=== PATIENT | male | born 1985 | race Caucasian/White ===

== ENCOUNTER 2017-01-11 17:25 | Inpatient (IN) | payer BC, OTHER ==
[~2017-01-11] VITALS: Ht 180.3 cm; Wt 77.1 kg
--- NOTE | ~2017-01-11 | S ---
[facility] [place] [address] SURGICAL PATH RPT PROCEDURE Name: ROSHAN ESCOBEDO Room #: 417-I [facility] IN ..#: [id number] Admission: 01/11/17 Date of : 83 Discharge: 01/12/17 Report #: [id number] Path Case #: [id number] PATHOLOGY REPORT COLLECTION DATE: 01/12/2017 RECEIVED DATE: 01/12/2017 SUBMITTING PHYS: Dr. Alvino Schaefer OTHER PHYS: SPECIMEN(S) RECEIVED: A.Nevus and skin from abdomen B.Appendix * * * * * * * * * * * * FINAL DIAGNOSIS: A. Nevus, nevus and skin from abdomen, excision: - Compound nevus with congenital features. - Completely excised. B. Appendix, appendectomy: - Marked acute appendicitis along with mild serositis. (IUV:mml; d/t: 01/15/2017) PATHOLOGIST: Julieta Torrez M.D. REPORT ELECTRONICALLY SIGNED BY: Julieta Torrez M.D. DATE/TIME: 01/15/2017 17:37 * * * * * * * * * * * * GROSS PATHOLOGY: A. Received in formalin labeled "Roshan Escobedo, nevus and skin from abdomen," is a 2.0 x 0.8 x 1.1 cm ellipse of skin displaying a well-circumscribed, raised, granular and light brown lesion which measures 1.0 x 0.8 x 0.4 cm. The margins are inked black. The specimen is sectioned into six pieces and entirely submitted in cassettes A1 and A2, with the tips placed in cassette A2. B. Received in formalin labeled "Roshan Escobedo, shena," is an appendix measuring 8.6 cm in length and up to 1.1 cm in diameter with a small amount of attached mesoappendix. The serosal surface is pale calderon to pink-calderon in appearance with moderate vasculature. Sectioning reveals a patent to dilated lumen filled with white-calderon mucoid material. [employer] sections are submitted in cassette A1. (CAA; 01/14/2017) CLINICAL HISTORY: Acute appendicitis, abdominal skin nevus [address] [address] SURGICAL PATH RPT PROCEDURE Name: ROSHAN ESCOBEDO Room #: 417-I [facility] IN .R.#: [id number] Admission: 01/11/17 Date of : 83 Discharge: 01/12/17 Report #: [id number] Path Case #: [id number] INITIAL CPT CODE(S): A; 29360 B; 62975 Professional services performed by [facility] [address], [place] [address] Technical services performed by [facility] at [address] [place] [address], [facility] [address] [address]. [facility] [address] [address] PHONE: [phone] DIRECTOR: Andrew Balderas M.D. * * * END OF REPORT * * *
--- NOTE | ~2017-01-11 | H ---
[facility] [place] [address] HISTORY AND PHYSICAL Name: ALAN DILL Raman Room #: 417-I ADM IN [facility].#: [id number] Admission: 01/11/17 Attend Phys: Alvino Schaefer MD, F Discharge: Date of : 83 Report #: [id number] THIS REPORT FOR: //name// CC: FAUSTINO physician/PCP Alvino Schaefer DATE OF SERVICE: 01/12/2017 This 31-year-old male presented to the Emergency Room last night at approximately 2000 with abdominal pain. HISTORY OF PRESENT ILLNESS: The patient's abdominal pain began in the a.m. on and progressively worsened during the day. He had some anorexia associated with nausea and vomiting. Pain seemed to localize to his right lower quadrant. A CT scan was consistent with early appendicitis. He has had no previous disease or illnesses in regard to his gastrointestinal tract. He is somewhat anorexic today. PAST MEDICAL HISTORY AND SURGICAL ILLNESSES: None. MEDICAL ILLNESSES: None. ALLERGIES: HYDROCODONE (VICOPROFEN) caused a rash. He is not allergic to Advil. MEDICATIONS: None currently. SOCIAL HISTORY: . Does not smoke cigarettes. Denies alcohol ingestion or illegal drugs. FAMILY HISTORY: Not obtained. REVIEW OF SYSTEMS: A 10-point review of systems essentially well, healthy male with no previous or antecedent illness. He denies all symptomatology. PHYSICAL EXAMINATION: EXTREMITIES: Reveals a well-developed, well-nourished male. IV is infusing. VITAL SIGNS: Within normal limits, afebrile. HEENT: Pupils equal, round, react to light. Extraocular movements normal limits. NECK: Supple, no adenopathy. LUNGS: Clear at the bases bilaterally. CARDIOVASCULAR: Regular rate and rhythm. ABDOMEN: Nondistended, tenderness to palpation in the right lower quadrant. Positive Rovsing's. There is a 1.5 cm pedunculated, brown pigmented nevus which requires excision. [facility] [address] [address] HISTORY AND PHYSICAL Name: ANIYAHLOKIISIS Camargo [facility] IN [facility]#: [id number] Admission: 01/11/17 Attend Phys: Alvino Schaefer MD, F Discharge: Date of : 83 Report #: [id number] RECTAL: Not performed. NEUROLOGIC: Oriented x 3, bilateral motor symmetry. Review of the patient's CT is consistent with appendicitis. PLAN: 1. IV antibiotics have been given, laparoscopic appendectomy today. Procedure, benefits and risks have been discussed with the patient. 2. Excision of 1.5 cm pigmented compound, pedunculated nevus skin of abdomen. <ELECTRONICALLY SIGNED> By: Alvino Schaefer MD, FACS 01/12/17 1238 [id number] Alvino Schaefer MD, FACS /nt
--- NOTE | ~2017-01-11 | O ---
[facility] [place] [place] [address] OPERATIVE REPORT Name: ALAN IDLL Room #: 417-I [facility]..#: [id number] Admission: 01/11/17 Attend Phys: Alvino Schaefer MD, F Discharge: 01/12/17 Date of : 83 Report #: [id number] THIS REPORT FOR: //name// CC: FAUSTINO physician/PCP Alvino Schaefer DATE OF SERVICE: 01/12/2017 PREOPERATIVE DIAGNOSES: 1. Acute appendicitis. 2. A 2 cm pigmented elevated nevus skin of right lower abdomen. POSTOPERATIVE DIAGNOSES: 1. Acute appendicitis, nonperforated. 2. A 2 cm pigmented elevated nevus skin of right lower abdomen. PROCEDURE: 1. Laparoscopic appendectomy. 2. Excision 2 cm pigmented nevus skin of right lower abdomen. SURGEON: Alvino Schaefer M.D. INDICATIONS: A 31-year-old male with approximately 24 hours of abdominal pain, localized right lower quadrant associated with nausea and vomiting and a CT scan is positive for appendicitis. OPERATIVE PROCEDURE: The patient was on IV antibiotics. He had a thorough discussion of the procedure, benefits and risks. He gave informed consent to proceed. He also had a small pigmented lesion on the skin of the lower abdomen and discussion was held with the patient for excision of the small lesion at the time of operation. After satisfactory induction of anesthesia and sterile prep and draping with DuraPrep, an appropriate timeout was then performed. 0.5% plain Naropin was utilized at all trocar sites and also the 2 cm pigmented lesion of the skin of the right lower abdomen. Initial excision of the 2 cm lesion was performed. All was submitted for histologic examination. Hemostasis was achieved with electrocautery. The subcutaneous tissue was approximated with interrupted 4-0 Monocryl. The dermal approximation was then completed with running subcuticular 4-0 Monocryl. Attention was turned to the infraumbilical region. An open cutdown procedure was performed below the umbilicus. The fascia was grasped, incision was made. Direct vision introduction to the posterior fascia into the peritoneal cavity was performed. The Sanjeev trocar was then introduced. The balloon was inflated. Pneumoperitoneum was established. A left lower quadrant 5 mm trocar port and a lower midline 5 mm trocar port were then placed under direct vision. The appendix was in an inferior cecal position, it was hyperemic throughout and bulbous except for the very proximal 1 cm that was consistent with a fecalith in the proximal portion [address] [address] OPERATIVE REPORT Name: ALAN DILL Raman Room #: 417-I [facility] IN .R.#: [id number] Admission: 01/11/17 Attend Phys: Alvino Schaefer MD, F Discharge: 01/12/17 Date of : 83 Report #: [id number] of the appendix, which was dilated. The Sonicision was utilized to free the appendix and peritoneal adhesions. The mesoappendix was taken down with the Sonicision. The base of the appendix was then crossclamped, ligated and divided with the SHERRY laparoscopic endoscopic white load. The appendix was placed into an Endobag and removed from the peritoneal cavity. Photographs had been taken and were made part of the medical record. Attention was turned back to the peritoneal cavity. An 0 PDS suture was placed in a [id number] fashion under direct vision at the infraumbilical port site. Copious irrigation with saline was performed. Evacuation of all irrigating contents was accomplished. The mesenteric transection point of the appendiceal artery was dry. The base of the appendiceal stump was also dry. Dirk was sprayed into the region. A final photograph of the gallbladder and liver, which were within normal limits, was taken as the fourth photograph. The small trocars were then removed under direct vision. No other intra-abdominal pathology was noted. The pneumoperitoneum was removed and the 0 PDS suture at the infraumbilical port site was ligated in place. Skin margins approximated with subcuticular 4-0 Monocryl. Dermabond was applied to all of the 4 sites. The estimated blood loss was less than 10 mL. The patient returned to recovery room in satisfactory condition. <ELECTRONICALLY SIGNED> By: Alvino Schaefer MD, FACS 01/15/17 1150 1702 1747 Alvino Schaefer MD, FACS /nt
[~2017-01-11 17:25] MED LIST: CLARITIN-D 12 H1 TA1
[2017-01-11 17:28] VITALS: BP 129/81
[2017-01-11 17:42] LABS: URINE BILIRUBIN NEGATIVE (Negative); URINE BLOOD NEGATIVE (Negative); URINE COLOR YELLOW; URINE GLUCOSE-RANDOM* NEGATIVE (Negative); URINE KETONES TRACE (Negative); URINE NITRITE NEGATIVE (Negative); URINE PROTEIN (DIPSTICK) TRACE (Negative); URINE UROBILINOGEN 0.2 E.U./dl (0.2-1.0)
[2017-01-11 18:03] LABS: HEMATOCRIT 44.2 % (42.0-52.0); HEMOGLOBIN 15.2 gm/dL (14.0-18.0); MCH 29.8 pg (26.0-34.0); MCHC 34.4 g/dL (28.0-37.0); MCV 86.5 fL (80.0-100.0); PLATELET COUNT 313 thou/uL (150-400); RBC 5.11 mil/uL (4.50-6.00); RDW 12.9 % (10.5-14.5); WBC 18.2 thou/uL (4.0-11.0)
[2017-01-11 18:04] LABS: MANUAL DIFF YES
[2017-01-11 18:13] LABS: CALCIUM 9.4 mg/dL (8.5-10.1); POTASSIUM 3.8 mmol/L (3.5-5.1)
[2017-01-11 18:17] LABS: ALBUMIN 4.1 g/dL (3.4-5.0); DIRECT BILIRUBIN 0.1 mg/dL (<0.1-0.3); TOTAL BILIRUBIN 0.6 mg/dL (<0.1-1.0); TOTAL PROTEIN 7.6 g/dL (6.4-8.2)
[2017-01-11 18:30] LABS: ABSOLUTE NEUTROPHILS 16.4 thou/uL (1.4-8.2); TOTAL CELL COUNT 100
[2017-01-11 20:30] VITALS: BP 111/58
[2017-01-12 04:06] VITALS: BP 105/50
[2017-01-12 08:00] VITALS: BP 111/60
[2017-01-12 09:41] VITALS: BP 119/76
[2017-01-12 19:25] VITALS: BP 119/76
== END 2017-01-12 20:06 | disposition home or self-care (01) | DRG 343 ==
LOC: ER 17:25 → EROBS 20:02 → 4E 20:02
PROVIDERS: Nurse Practitioner
PROC: 0JB80ZZ Excision of Abdomen Subcutaneous Tissue and Fascia, Open Approach (ICD-10-PCS; principal; 2017-01-12)
PROC: 0DTJ4ZZ Resection of Appendix, Percutaneous Endoscopic Approach (ICD-10-PCS; principal; 2017-01-12)
DX: K35.80 Unspecified acute appendicitis (principal); F12.90 Cannabis use, unspecified, uncomplicated; D22.5 Melanocytic nevi of trunk; Z88.6 Allergy status to analgesic agent
CPT/HCPCS: 10084; 50010; 50101; 50249; 50411; 50555; 50739; 50740; 50900; 50944; 50962; 51489; 51975; 52265; 52287; 53307; 54022; 54118; 56525; 56526; 62110; 62900; 70005